=== PATIENT | male | born 1975 | race African-American/Black ===

== ENCOUNTER 2016-09-16 12:02 | Emergency (ER) | payer OTHER ==
[~2016-09-16] VITALS: Ht 167.6 cm; Wt 73.9 kg
[~2016-09-16 12:02] MED LIST: NAPROXEN500 MG PO; PEN-VEE K,VEET500 MG PO
[2016-09-16 12:09] VITALS: BP 133/76
[2016-09-16 13:53] LABS: INFLUENZA A VIRAL ANTIGEN NEGATIVE; INFLUENZA B VIRAL ANTIGEN NEGATIVE
[2016-09-16] MEDS ORDERED: AMOXICILLIN500 MG PO (14:02)
== END 2016-09-16 14:22 | disposition home or self-care (01) ==
LOC: EME 12:02
PROVIDERS: Physician Assistant Medical
DX: J02.0 Streptococcal pharyngitis (principal)
CPT/HCPCS: 87502; 87651 90; 99281; 99283; J1100